=== PATIENT | female | born 1975 | race Caucasian/White ===

== ENCOUNTER → 2017-05-25 | Outpatient (CLI) | payer BC ==
--- NOTE | 2017-05-28 17:31 | DI ---
MRI LEFT ELBOW SCAN WITH AND WITHOUT IV CONTRAST, 05/25/2017 10:49 AM: Clinical History: Mass of the left elbow. Previous Exam: None at this facility. Technique: Axial and sagittal T1 and T2-weighted. Pre-and postcontrast fat saturated T1 weighted axia l and sagittal scans. A vitamin E capsule was placed just proximal to the antecubital fossa medial to the mid sagittal plane. Contrast Volume: There is no soft tissue edema. There is no joint effusion. No abnormal bone signal pattern is present . There is fatty tissue surrounding the elbow joint. The vitamin E capsule is placed over the brachia lis muscle proximal to the antecubital fossa. No discrete septations are seen in the subcutaneous fat to indicate presence of a definite lipoma. There is no abnormal enhancement of the septations within the fatty tissue surrounding the vitamin E capsule. No soft tissue muscular mass is identified. The flexor and extensor tendons and the ligamentous structures at the elbow joint are intact. Readin. A definite soft tissue mass is not seen. There is no demarcation of the fatty tissue to suggest t here is a discrete lipoma, and there is no abnormal enhancement of the fatty tissue in proximity to t he vitamin E capsule. 2. No muscular soft tissue mass is identified. The bony structures and the flexor and extensor tendo ns and the ligaments of the elbow are intact.
== END ==
LOC: MRI 10:45
PROVIDERS: ATTEND Surgery
DX: R22.32 Localized swelling, mass and lump, left upper limb (principal); D17.22 Benign lipomatous neoplasm of skin and subcutaneous tissue of left arm
CPT/HCPCS: 73220